=== PATIENT | male | born 2000 | race American Indian/Alaskan Native ===

== ENCOUNTER 2018-11-29 00:18 | Emergency (ER) | payer BC ==
[2018-11-29 00:41] VITALS: BP 135/78
--- NOTE | 2018-11-29 01:04 | XRay Report ---
PROCEDURE: XR CHEST 1V AP TECHNIQUE: An AP view of the chest was obtained. HISTORY: Chest Pain COMPARISONS: None FINDINGS: The lungs are clear. The heart size is normal. Pleural fluid is not seen. The bones and soft tissues are well-maintained. IMPRESSION: Normal exam.. This document is electronically signed by Adarsh Brewster MD., November 29 2018 01:01:31 AM ET
[2018-11-29] MEDS ORDERED: IBUPROFEN PO ONE (01:49)
--- NOTE | 2018-11-29 01:53 | Emergency Department Report ---
ED General Adult HPI - General Chief complaint: Chest Pain Stated complaint: CP Time Seen by Provider: 11/29/18 01:48 Source: patient Mode of arrival: Ambulatory Limitations: No Limitations - History of Present Illness Initial comments: 18-year-old -[place] male comes in with chest pain 2 days. Patient denies any radiation of pain denies any nausea no vomiting no diaphoresis. Patient reports the pain is worse when laying down in certain positions and better not sure. Patient does admit that he works for [employer] and often lifts heavy boxes. Patient is taken nothing for pain. He reports pain is intermittent. Has a past medical history of asthma and seasonal allergies. Patient does not have a primary care provider and reports pain as a 7 out of 10 on no drug allergies -: days(s) (3) Location: chest Radiation: non-radiation Severity scale (0 -10): 7 Quality: aching Consistency: intermittent Improves with: none Worsens with: movement Associated Symptoms: denies other symptoms Treatments Prior to Arrival: none - Related Data Previous Rx's Medication Instructions Recorded Last Taken Type Ibuprofen [Motrin 800 MG tab] 800 mg PO Q8HR #21 tablet 11/29/18 Unknown Rx Allergies Allergy/AdvReac Type Severity Reaction Status Date / Time No Known Allergies Allergy Unverified 11/29/18 00:20 ED Review of Systems ROS: Stated complaint: CP Other details as noted in HPI Comment: All other systems reviewed and negative ED Past Medical Hx - Past Medical History Previous Medical History?: Yes Hx Asthma: Yes - Surgical History Past Surgical History?: No - Social History Smoking Status: Current Every Day Smoker Substance Use Type: None - Medications Home Medications: Home Medications Medication Instructions Recorded Confirmed Last Taken Type Ibuprofen [Motrin 800 MG tab] 800 mg PO Q8HR #21 tablet 11/29/18 Unknown Rx ED Physical Exam - General Limitations: No Limitations General appearance: alert, in no apparent distress - Head Head exam: Present: atraumatic, normocephalic - Eye Eye exam: Present: normal appearance, EOMI - ENT ENT exam: Present: mucous membranes moist - Respiratory Respiratory exam: Present: normal lung sounds bilaterally, chest wall tenderness - Cardiovascular Cardiovascular Exam: Present: regular rate, normal rhythm. Absent: systolic murmur, diastolic murmur, rubs, gallop - GI/Abdominal GI/Abdominal exam: Present: soft, normal bowel sounds - Extremities Exam Extremities exam: Present: normal inspection, full ROM - Back Exam Back exam: Present: normal inspection, full ROM - Neurological Exam Neurological exam: Present: alert, oriented X3 - Psychiatric Psychiatric exam: Present: normal affect, normal mood - Skin Skin exam: Present: warm, dry, intact, normal color. Absent: rash ED Course Vital Signs 11/29/18 00:39 Temperature 98.2 F Pulse Rate 75 Respiratory 18 Rate Blood Pressure 135/78 O2 Sat by Pulse 100 Oximetry Critical care attestation.: If time is entered above; I have spent that time in minutes in the direct care of this critically ill patient, excluding procedure time. ED Disposition Clinical Impression: Tenderness of chest wall Disposition: DC-01 TO HOME OR SELFCARE Is pt being admited?: No Does the pt Need Aspirin: No Condition: Stable Instructions: Chest Pain (ED), Costochondritis (ED) Additional Instructions: Please take pain medication as needed. Follow-up with the primary care provider if his symptoms persist or gets worse. Prescriptions: Ibuprofen [Motrin 800 MG tab] 800 mg PO Q8HR #21 tablet Referrals: BERNARDA FAITH MD [Primary Care Provider] - 3-5 Days [facility] [Provider Group] - 3-5 Days Forms: Accompanied Note, Work/School Release Form(ED)
== END 2018-11-29 02:04 | disposition home or self-care (01) ==
LOC: ED 00:18
DX: R07.89 Other chest pain (principal); J45.909 Unspecified asthma, uncomplicated; F17.200 Nicotine dependence, unspecified, uncomplicated
CPT/HCPCS: 71045; 93005; 93010; 99283